=== PATIENT | male | born 1980 | race Caucasian/White ===

== ENCOUNTER 2017-09-05 18:50 | Emergency (ER) | payer SELFPAY ==
[2017-09-05] MEDS ORDERED: Lidocaine 1% 20 ML MDV INJECT ONE (19:11)
[2017-09-05] MEDS ORDERED: Diphtheria,Pertussis(Acell),Tetanus Vaccine 0.5 ML Syringe IM ONE (19:11)
--- NOTE | 2017-09-05 19:17 | EDM.PDOC ---
ED HPI GENERAL MEDICAL PROBLEM - General Chief Complaint: Upper Extremity Injury/Pain Stated Complaint: PT HURT RT HAND Time Seen by Provider: 09/05/17 19:02 - History of Present Illness INITIAL COMMENTS - FREE TEXT/NARRATIVE: HISTORY AND PHYSICAL: History of present illness: The patient is a 37-year-old male who is unsure of his last tetanus shot and presents with complaints of laceration to his right index finger that occurred just prior to arrival when he was at work. Patient is right-hand dominant and says he was opening a box with his coworker and his coworkers knife cut the area on his finger. He is here because it has been persistently bleeding and he doesn't have significant pain. He is able to extend the digit and he has no other injuries. Prior to these events he was in his usual state of good health Review of systems: As per history of present illness and below otherwise all systems reviewed and negative. Past medical history: As per history of present illness and as reviewed below otherwise noncontributory. Surgical history: As per history of present illness and as reviewed below otherwise noncontributory. Social history: No reported history of drug or alcohol abuse. Family history: As per history of present illness and as reviewed below otherwise noncontributory. Physical exam: Gen.: Well-developed well-nourished mildly overweight male who is nontoxic and vital signs of HEENT: Atraumatic, normocephalic, negative for conjunctival pallor or scleral icterus, mucous membranes moist, throat clear, neck supple, nontender, trachea midline. Lungs: Clear to auscultation, breath sounds equal bilaterally, chest nontender. Heart: S1S2, regular rate and rhythm no overt murmurs Abdomen: Soft, nondistended, nontender. NABS Pelvis: Deferred Genitourinary: Deferred. Rectal: Deferred. Extremities: Atraumatic with full range of motion of all extremities with the exception of the dorsal aspect of the middle phalanx of the right index finger where there is a linear 2.25 cm laceration appreciated with oozing of blood. The patient is able to flex and extend against resistance without deficits neurovascular is intact. The legs are, negative for cords or calf pain. Neurovascular unremarkable. Neuro: Awake, alert, oriented. Cranial nerves II through XII unremarkable. Cerebellum unremarkable. Motor and sensory unremarkable throughout. Exam nonfocal. Diagnostics: [] Therapeutics: Tdap, wound care Procedure note: After the wound was cleansed by nursing and the procedure was explained to the patient, the area was prepped and draped and 1% lidocaine without epinephrine was infused in a local fashion.The wound was explored and no foreign bodies were appreciated and the skin edges were reapproximated using a total number of # 5 sutures of 4-0 nylon in a simple interrupted fashion. Patient tolerated procedure well and there was no complications. Bacitracin and a dressing were applied. The procedure was performed by Pat Goel NP Impression: Index finger laceration, right Definitive disposition and diagnosis as appropriate pending reevaluation and review of above. Right Hand Pain Score (Numeric/FACES): 1 - Related Data Allergies Allergy/AdvReac Type Severity Reaction Status Date / Time No Known Allergies Allergy Verified 09/05/17 19:11 Home Meds: Home Meds . [No Known Home Meds] 09/05/17 [History] Review of Systems - Review of Systems Review Of Systems: ROS reveals no pertinent complaints other than HPI. ED EXAM, GENERAL - Physical Exam Exam: See Below (See dictation) Course - Vital Signs Last Recorded V/S: Last Vital Signs Temp 36.2 C 09/05/17 19:08 Pulse 78 09/05/17 19:08 Resp 18 09/05/17 19:08 BP 163/94 H 09/05/17 19:08 Pulse Ox 98 09/05/17 19:08 - Orders/Labs/Meds Orders: Active Orders 24 hr Category Date Time Status Communication Order [RC] STAT Care 09/05/17 19:10 Active Vaccines to be Administered [RC] PER UNIT ROUTINE Care 09/05/17 19:11 Active Meds: Medications Discontinued Medications Generic Name Dose Route Start Last Admin Trade Name Freq PRN Reason Stop Dose Admin Bacitracin 1 dose 09/05/17 19:18 09/05/17 19:45 Bacitracin Oint 1 Gm TOP 09/05/17 19:19 1 dose ONETIME ONE Administration Diphtheria/Tetanus/Acell Pertussis 0.5 ml 09/05/17 19:11 09/05/17 19:43 Adacel IM 09/05/17 19:12 0.5 ml .ONCE ONE Administration Lidocaine HCl 20 ml 09/05/17 19:11 09/05/17 19:44 Xylocaine 1% INJECT 09/05/17 19:12 20 ml ONETIME ONE Administration Departure - Departure Time of Disposition: 20:01 Disposition: Home, Self-Care 01 Condition: Good Clinical Impression: Finger laceration Qualifiers: Encounter type: initial encounter Finger: index finger Damage to nail status: without damage Foreign body presence: without foreign body Laterality: right Qualified Code(s): S61.210A - Laceration without foreign body of right index finger without damage to nail, initial encounter - Discharge Information Referrals: PCP,None [Primary Care Provider] - Forms: ED Department Discharge Additional Instructions: The following information is given to patients seen in the emergency department who are being discharged to home. This information is to outline your options for follow-up care. We provide all patients seen in our emergency department with a follow-up referral. The need for follow-up, as well as the timing and circumstances, are variable depending upon the specifics of your emergency department visit. If you don't have a primary care physician on staff, we will provide you with a referral. We always advise you to contact your personal physician following an emergency department visit to inform them of the circumstance of the visit and for follow-up with them and/or the need for any referrals to a consulting specialist. The emergency department will also refer you to a specialist when appropriate. This referral assures that you have the opportunity for followup care with a specialist. All of these measure are taken in an effort to provide you with optimal care, which includes your followup. Under all circumstances we always encourage you to contact your private physician who remains a resource for coordinating your care. When calling for followup care, please make the office aware that this follow-up is from your recent emergency room visit. If for any reason you are refused follow-up, please contact the [facility] emergency department at and ask to speak to the emergency department charge nurse. [facility] Primary care- Internal Medicine and Family [address] [id number] These keep area clean and dry and do not remove dressing placed from the emergency department for the next 24 hours. After 24 hours remove the dressing and cleanse with mild soap and water pat dry and apply bacitracin or Neosporin. After 2-3 days please stop the ointment. Sutures should be removed in 7 days either here in the emergency department or with your provider in the clinic. Return to ER as needed and as discussed. - My Orders Last 24 Hours: My Active Orders 09/05/17 19:10 Communication Order [RC] STAT 09/05/17 19:11 Vaccines to be Administered [RC] PER UNIT ROUTINE - Assessment/Plan Last 24 Hours: My Active Orders 09/05/17 19:10 Communication Order [RC] STAT 09/05/17 19:11 Vaccines to be Administered [RC] PER UNIT ROUTINE
[2017-09-05] MEDS ORDERED: Bacitracin Oint 1 GM U/D Packet TOP ONE (19:18)
== END 2017-09-05 20:14 | disposition home or self-care (01) ==
LOC: MW.ED 18:50
DX: S61.210A Laceration without foreign body of right index finger without damage to nail, initial encounter (principal); Z23 Encounter for immunization; W26.0XXA Contact with knife, initial encounter; Y99.0 Civilian activity done for income or pay
CPT/HCPCS: 12001; 90471; 90715; 99282; 99282-25